=== PATIENT | male | born 1945 | race Caucasian/White ===

== ENCOUNTER 2021-05-02 12:30 | Outpatient (RCR) | payer MEDICARE, SELFPAY ==
--- NOTE | 2021-04-09 14:06 | STOPEVAL ---
Thank you for referring Gt Lawrence to [facility].? The patient is scheduled to be seen for therapy? 2x/week for 4 weeks. Please review, sign, date and return this plan of care PRAVEEN. I agree with and certify that the following plan of care is medically necessary. Referring Physician Date Attending Provider: Pedrito Elder, * Outpatient Evaluation Therapy Assessment Status Assessment Status Assessment Status Evaluation Outpatient Past Medical History Neurological History Hx Neurological Disorders No Significant History Cardiovascular History Hx Hypercholesterolemia Yes Respiratory History Hx Respiratory Disorders No Significant History Gastrointestinal History Hx Gastroesophageal Reflux Disease Yes Genitourinary History Hx Genitourinary Disorders No Significant History Musculoskeletal History Hx Musculoskeletal Disorders No Significant History Hematological History Hx Hematological Disorders No Significant History Endocrine History Hx Endocrine Disorders No Significant History HEENT History Hx HEENT Disorders No Significant History Integumentary History Hx Skin Disorders No Significant History Reproductive History Hx Reproductive Disorders No Significant History Psychosocial History Hx Psychiatric Disorders No Significant History Pain History History of Any Previous or Ongoing No Significant History Instance of Pain Anesthesia History Hx Anesthesia Reactions No Significant History Evaluation Information Problem Diagnosis Dysphonia Onset 03/28/20 Additional Evaluation Detail Reports vocal hoarseness has been going on for about a year , at first did not notice it however became more frequent and constant starting about the Spring of this year, July or August, according to patient. Reports history of allergies, not bad enough to be tested, but knows some days are more noticeable than others. Reports history of GERD, had taken medicine randomly but since Dr. Ansari's Nurse Practiontioner, visit, takes medicine daily. Subjective Information The patient reports that when Query Text:As Reported By Patient/ he saw his primary care doctor Family , patient stated he had some mild weight loss this summer. His PCP sent him to Dr. Elder where he saw a Nurse
--- NOTE | 2021-05-02 14:08 | STOPEVAL ---
Thank you for referring Gt [place] to [facility] [place] [facility] [place] Attending Provider: Pedrito Elder MD Voice Re-Evaluation and Discharge Summary Intelligibility Single Word Production (% 100 Intelligibility) Sentence Level Speech (% Intelligibility 100 ) Conversational Level Speech (% 100 Intelligibility) Respiration Type of Breathing Pattern Abdominal Counts on One Breath (#) 50 Length of Time for Counting (seconds) 20 Vowel Prolongation (seconds) 19 Length of Time for Sustaining /s/ ( 27 Seconds) Length of Time for Sustaining /z/ ( 21 seconds) Termination of Phrases/Sentences Yes Coincides with Termination of Exhalation Method of Breathing Diaphragmatic-Abdominal Decrement In: Phonation No 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 Loudness Loudness Patient reports that he feels that most of the time he is able to achieve an average loudness based on our practice of 68-72 decibels. He stated that in the past month his has had to cue or remind him to decrease his loudness only one time while he was in a telephone conversation with a friend. Voice Quality Breathiness Mild Harshness Mild Hoarseness Mild-Moderate Vocal Castillo None Voice Quality Patient reports that when he keeps his voice within 68-72 decibels, he says it is easy to voice but when he becomes more animated and becomes louder, he feels that it is harder, his voice becomes more harsh, and it begins to break up a little bit. Because he is aware of decibel levels, he is trying to avoid becoming
--- NOTE | 2021-05-02 14:17 | STOPEVAL ---
Thank you for referring Gt [facility] to [facility] [place].? Attending Provider: Pedrito Elder, DISCHARGE SUMMARY This patient has been seen for a total of Speech Therapy sessions to address vocal hoarseness and vocal hygiene program. Patient presented with a vocal nodule. He was presented with a vocal hygiene program to reduce negative vocal behaviors including speaking too loudly and excessively and frequent coughing/throat clearing secondary to allergies. He was instructed to remain on allergy and reflux medicine as physician prescribed in order to reduce the impact allergies and reflux may have on the vocal cords, and he was instructed in a variety of techniques to reduce stress and tension in the neck and vocal cords including the yawn -sign speaking technique and relaxation techniques for the body, neck, and larynx. Therapy also addressed maintaining vocal loudness between 68-72 decibels ( average conversational level in a quiet therapy room), and maintaining this across conversational tasks including while in a noisy environment. Patient achieved all goals by time of discharge. Improved vocal quality and appropriate vocal loudness has been achieved however mild hoarseness remains. Patient was discharged with home program for yawn-sigh technique and vocal hygiene in place. It is expected that patient will require maintaining current skills and more time for vocal nodule to heal and disappear however no further direct Speech Therapy is indicated.
== END 2021-05-03 14:28 | disposition home or self-care (01) ==
LOC: ANHST 12:30
PROVIDERS: PCP Internal Medicine; Visit Provider Otolaryngology
DX: R49.0 Dysphonia (principal)
CPT/HCPCS: 92507; 92523